=== PATIENT | female | born 1960 | race Caucasian/White ===

== ENCOUNTER 2018-11-20 21:20 | Emergency (ER) | payer BC ==
[~2018-11-20] VITALS: Ht 152.4 cm; Wt 58.2 kg
[2018-11-20 21:37] VITALS: BP 169/85
[2018-11-20] MEDS ORDERED: TETanus/Pertussis (Acell)/Diphther VAC/PF (Tdap-Adult) 0.5ml syringe IM ONE (22:25)
[2018-11-20] MEDS ORDERED: diphenhydrAMINE 50 mg/ml inj IM ONE (22:25)
[2018-11-20] MEDS ORDERED: TETanus/Pertussis (Acell)/Diphther VAC/PF (Tdap-Adult) 0.5ml syringe IMVAC ONE (22:30)
== END 2018-11-20 22:59 | disposition home or self-care (01) ==
LOC: ER 21:21
DX: S61.210A Laceration without foreign body of right index finger without damage to nail, initial encounter (principal); Z88.1 Allergy status to other antibiotic agents; Z88.0 Allergy status to penicillin; W54.0XXA Bitten by dog, initial encounter; Y93.89 Activity, other specified; Y92.89 Other specified places as the place of occurrence of the external cause; Y99.9 Unspecified external cause status
CPT/HCPCS: 12001; 90471; 90715; 96372; 99283; J1200